=== PATIENT | female | born 1995 | race Caucasian/White ===

== ENCOUNTER 2019-01-16 21:42 | Emergency (ER) | payer OTHER ==
[2019-01-16] MEDS ORDERED: ONDANSETRON 4 MG/2 ML VIAL IVP ONE (22:40)
[2019-01-16] MEDS ORDERED: LIDOCAINE 2% VISCOUS 15 ML UDCUP PO ONE (22:40)
[2019-01-16] MEDS ORDERED: HYOSCYAMINE SULFATE 0.125 MG TAB PO ONE (22:40)
[2019-01-16] MEDS ORDERED: MAG HYDROX/AL HYDROX/SIMETH 30 ML UDCUP PO ONE (22:40)
[2019-01-16] MEDS ORDERED: NS 1,000 ML IV ONE (22:40)
--- NOTE | 2019-01-16 22:44 | EDPHY ---
H & P Stated Complaint: mid abd pain that radiates to back with vomiting Source: Patient Exam Limitations: No limitations - Personal History LMP (Females 10-55): Now Current Tetanus/Diphtheria Vaccine: Yes Current Tetanus Diphtheria and Acellular Pertussis (TDAP): Yes - Medical/Surgical History Hx Asthma: No Hx Chronic Respiratory Disease: No Hx Diabetes: No Hx Cardiac Disease: No Hx Renal Disease: No Hx Cirrhosis: No Hx Alcoholism: No Hx HIV/AIDS: No Hx Splenectomy or Spleen Trauma: No Other PMH: wisdom teeth - Social History Smoking Status: Never smoked Time Seen by Provider: 01/16/19 22:40 HPI/ROS: HPI: This is a 23-year-old female who presents with Chief Complaint: mid abd pain that radiates to back with vomiting Location: Epigastric Quality: Pain Duration: 2 week Signs and Symptoms: no fever, + nausea, + vomiting, no hematemesis, no blood in stool, no abdominal bloating, no diarrhea, no back pain, no urinary symptoms, no vaginal bleeding/discharge, no indigestion, no chest pain, no shortness of breath Timing: Acute, intermittent episodes Severity: Moderate Context: Patient presents with 2 week history epigastric gnawing, burning pain accompanied by nausea. Patient reports that these episodes occur every other day or every 2 days. She has not noticed any relation to food that she eats. Denies indigestion, early satiety, abdominal bloating. Currently on her menses and takes oral control pills daily. Does not regularly use NSAIDs. No recent foreign travel. Modifying Factors: None Comment: ROS: A comprehensive 10 system review of systems is otherwise negative aside from elements mentioned in the history of present illness. MEDICAL/SURGICAL/SOCIAL HISTORY: Medical history: Generally healthy. Takes oral control pills. Surgical history: Denies Social history: Never smoked. Denies regular alcohol use. Family history noncontributory. CONSTITUTIONAL: Well-developed, well-nourished, young adult white female, awake and alert, no obvious distress HEENT: Atraumatic and normocephalic, PERRL, EOMI. Nares patent; no rhinorrhea; no nasal mucosal edema. Tympanic membranes clear. Oropharynx clear, no exudate and moist pink mucosa. Airway patent. No lymphadenopathy. No meningismus. Cardiovascular: Normal S1/S2, regular rate, regular rhythm, without murmur rub or gallop. PULMONARY/CHEST: Symmetrical and nontender. Clear to auscultation bilaterally. Good air movement. No accessory muscle usage. ABDOMEN: Soft, nondistended, moderate epigastric tenderness, mild right upper quadrant tenderness with deep palpation, no rebound, no guarding, no peritoneal signs, no masses or organomegaly. No CVAT. EXTREMITIES: 2/2 pulses, strength 5/5, no deformities, no clubbing, no cyanosis or edema. NEUROLOGICAL: no focal neuro deficits. GCS 15. SKIN: Warm and dry, no erythema. no rash. Good capillary refill. (Bonnie Fisher) Constitutional: Initial Vital Signs Temperature (C) 37.0 C 01/16/19 21:53 Heart Rate 68 01/16/19 21:53 Respiratory Rate 16 01/16/19 21:53 Blood Pressure 129/69 H 01/16/19 21:53 O2 Sat (%) 98 01/16/19 21:53 O2 Delivery Mode Room Air Allergies/Adverse Reactions: latex Allergy (Verified 01/16/19 21:55) Home Medications: Medication Instructions Recorded Birthcontrol 01/16/19 Cephalexin [Keflex (*)] 500 mg PO TID #21 cap 01/16/19 Pantoprazole Sodium [Protonix 40mg 40 mg PO DAILY #30 tab 01/16/19 (*)] Medical Decision Making ED Course/Re-evaluation: Vital signs reviewed and stable upon arrival. No systemic signs. IV access, laboratory studies, urinalysis, abdominal ultrasound ordered Patient given 1 L normal saline, IV Zofran 4 mg, GI cocktail, IV Protonix 40 mg 2340: Labs reviewed. WBC 13 K. No signs of anemia/platelet dysfunction/PETEY/ elevated LFTs/electrolyte imbalance/pancreatitis/. 2345: Called by Dr. Babin that right upper quadrant ultrasound is unremarkable. Urinalysis shows signs of infection, 3+ bacteria, 3+ LE; urine culture sent; given Keflex and Rx for same, no signs of pyelonephritis. Also give a prescription for Protonix with gastroenterology follow-up if symptoms persist for EGD candidacy evaluation. I suspect GERD versus gastritis versus peptic ulcer disease. This patient was seen under the supervision of my secondary supervising physician. I evaluated care for this patient independently. Discussed this patient with Dr. Tyler who did not see the patient. (Bonnie Fisher) PHYSICIAN DOCUMENTATION: The patient was evaluated and managed by the Physician Senior Facilities Manager. My co- signature indicates that I have reviewed this chart and I agree with the findings and plan of care as documented. I am the secondary supervising physician. (Emily Tyler) Differential Diagnosis: Abdominal pain including but not limited to appendicitis, cholecystitis, gastritis and urinary tract infection. (Bonnie Fisher) - Data Points Laboratory Results: Laboratory Results 01/16/19 22:44 01/16/19 22:44 Microbiology Results: MICROBIOLOGY 01/16/19 22:45 Urine,Clean Catch Urine Culture - Preliminary One [place] Type Medications Given: Discontinued Medications Al Hydroxide/Mg Hydroxide (Maalox Susp) 30 ml PO ONCE ONE Stop: 01/16/19 22:41 Last Admin: 01/16/19 22:46 Dose: 30 ml Cephalexin (Keflex 500 Mg Prepack#4) 1 btl TAKEHOME EDNOW ONE PRN Reason: Protocol Stop: 01/16/19 23:42 Last Admin: 01/16/19 23:49 Dose: 1 btl Hyoscyamine Sulfate (Levsin, Hyomax-Sl) 0.25 mg PO ONCE ONE Stop: 01/16/19 22:41 Last Admin: 01/16/19 22:46 Dose: 0.25 mg Sodium Chloride (Ns) 1,000 mls @ 0 mls/hr IV EDNOW ONE; Wide Open PRN Reason: Protocol Stop: 01/16/19 22:41 Last Admin: 01/16/19 22:47 Dose: 1,000 mls Lidocaine (Lidocaine 2% Viscous) 15 ml PO ONCE ONE Stop: 01/16/19 22:41 Last Admin: 01/16/19 22:46 Dose: 15 ml Ondansetron HCl (Zofran) 4 mg IVP EDNOW ONE Stop: 01/16/19 22:41 Last Admin: 01/16/19 22:46 Dose: 4 mg Pantoprazole Sodium (Protonix) 40 mg IV ONCE ONE Stop: 01/17/19 22:44 Last Admin: 01/16/19 22:50 Dose: 40 mg Departure - Departure Disposition: Home, Routine, Self-Care Clinical Impression: Lower urinary tract infection, acute GERD (gastroesophageal reflux disease) Qualifiers: Esophagitis presence: esophagitis presence not specified Qualified Code(s): K21.9 - Gastro-esophageal reflux disease without esophagitis Condition: Good Instructions: Cephalexin (By mouth), Urinary Tract Infection in Women (ED), Diet for Stomach Ulcers and Gastritis (ED), Gastroesophageal Reflux Disease (ED) Additional Instructions: Consume a minimum of 8-10 glasses of water or electrolyte fluid replacement drinks that include Gatorade, Powerade, Pedialyte. Eat a bland diet for the next 48 hours and then slowly advance as tolerated to a low-fat/GERD diet. Take antibiotic as directed. Do not skip a dose. Take Protonix daily. Follow-up with primary care provider in the next 5-7 days. Follow-up with Gastroenterology if symptoms persist greater than 1-2 weeks. You may need to be evaluated for EGD. Referrals: DANIEL EATON DR [Other] - As per Instructions Parker Colunga MD, FACG [Medical Doctor] - As per Instructions Prescriptions: Cephalexin [Keflex (*)] 500 mg PO TID #21 cap Pantoprazole Sodium [Protonix 40mg (*)] 40 mg PO DAILY #30 tab
[2019-01-16] MEDS ORDERED: PANTOPRAZOLE SODIUM 40 MG VIAL ONE (22:50)
[2019-01-16 22:52] LABS: PLATELET COUNT 307 10^3/uL (150-400)
[2019-01-16] MEDS ORDERED: CEPHALEXIN 500MG PREPACK#4 BTL TAKEHOME ONE (23:41)
[2019-01-16 23:55] VITALS: BP 124/73
[2019-01-17] MEDS ORDERED: PANTOPRAZOLE SODIUM 40 MG VIAL IV ONE (22:43)
== END 2019-01-16 23:54 | disposition home or self-care (01) ==
DX: N39.0 Urinary tract infection, site not specified (principal); K21.9 Gastro-esophageal reflux disease without esophagitis; E86.9 Volume depletion, unspecified
CPT/HCPCS: 96374; J2405